=== PATIENT | male | born 1995 | race Caucasian/White ===

== ENCOUNTER 2024-07-24 20:23 | Inpatient (IN) | payer SELFPAY ==
[~2024-07-24] VITALS: Ht 175.3 cm; Wt 52.0 kg
[2024-07-24] MEDS: ACETAMINOPHEN 500 MG TABLET PO ONE (23:49)
[2024-07-25 00:01] LABS: COVID AG,FIA SOURCE NASAL SWAB
[2024-07-25] MEDS ORDERED: MELATONIN 5 MG TABLET PO ONE (00:15)
[2024-07-25] MEDS ORDERED: IBUPROFEN 600 MG TABLET PO PRN (00:15)
[2024-07-25] MEDS ORDERED: MAG HYDROX/ALUMINUM HYD/SIMETH ES 30 ML SUSPENSION UDCUP PO PRN (00:15)
[2024-07-25] MEDS ORDERED: HydrOXYzine PAMOATE 50 MG CAPSULE PO PRN (00:15)
[2024-07-25] MEDS ORDERED: CloNIDine HCL 0.1 MG TABLET PO PRN (00:15)
[2024-07-25 00:18] LABS: BASOPHILS % (AUTO) 0.3 % (0.0-2.0); EOSINOPHILS % (AUTO) 0.2 % (1.0-6.0); HEMATOCRIT 41.7 % (41-53); HEMOGLOBIN 14.1 g/dL (13.5-17.5); LYMPHOCYTES # (AUTO) 0.6 K/uL (1.0-4.8); LYMPHOCYTES % (AUTO) 7.4 % (22.0-44.0); MEAN CORPUSCULAR HEMOGLOBIN 30.6 pg (26.0-34.0); MEAN CORPUSCULAR HGB CONC 33.8 G/dL (31.0-37.0); MEAN CORPUSCULAR VOLUME 91 fL (80-100); MONOCYTES # (AUTO) 0.3 K/uL (0.1-1.0); MONOCYTES % (AUTO) 3.2 % (2.0-9.0); NEUTROPHILS # (AUTO) 7.4 K/uL (1.8-7.7); PLATELET COUNT (AUTO) 287 K/uL (150-450); RED BLOOD CELL COUNT(AUTO) 4.61 MIL/uL (4.50-5.90); RED CELL DISTRIBUTION WIDTH 13.1 % (11.5-14.5); WHITE BLOOD COUNT (AUTO) 8.4 K/uL (4.5-11.0)
[2024-07-25 00:25] LABS: NEUTROPHILS % (AUTO) 88.9 % (40.0-70.0)
[2024-07-25 00:27] LABS: SARS-COV2 (COVID) ANTIGEN,FIA Negative (Negative)
[2024-07-25 00:37] LABS: ANION GAP 9 mmol/L (8-16); CALCIUM, TOTAL 8.9 mg/dL (8.8-10.5); CARBON DIOXIDE 29 mmol/L (22-29); CHLORIDE 105 mmol/L (98-107); CREATININE 0.88 mg/dL (0.60-1.30); GLOMERULAR FILTR. RATE CALC > 60 mL/min (>60); GLUCOSE,RANDOM 99 mg/dL (70-110); POTASSIUM 4.3 mmol/L (3.5-5.1); SODIUM SERUM 143 mmol/L (136-145); UREA NITROGEN, BLOOD 9 mg/dL (7-18)
[2024-07-25 00:41] LABS: ALCOHOL, BLOOD (SERUM) < 3 mg/dL (0-10)
[2024-07-25 00:44] LABS: ALANINE AMINOTRANSFERASE 57 U/L (12-78); ALBUMIN 3.9 g/dL (3.4-5.0); ALKALINE PHOSPHATASE 77 U/L (46-116); ASPARTATE AMINOTRANSFERASE 31 U/L (15-37); BILIRUBIN,TOTAL 0.3 mg/dL (0.1-1.0); TOTAL PROTEIN, SERUM 6.9 g/dL (6.4-8.2)
[2024-07-25 00:45] LABS: TROPONIN I-HIGH SENSITIVITY 16 ng/L (<76)
[2024-07-25] MEDS: CloNIDine HCL 0.1 MG TABLET PO SCH (06:00)
[2024-07-25] MEDS: NALTREXONE HCL 50 MG TABLET PO SCH (08:41)
[2024-07-25 08:51] LABS: PH,URINE DRUG SCREEN 7.5 (5.0-8.0)
[2024-07-25 08:58] LABS: ALCOHOL, URINE DRUG SCREEN NEGATIVE (NEGATIVE); AMPHET/METH SCREEN,URINE POSITIVE (NEGATIVE); BARBITURATE SCREEN, URINE NEGATIVE (NEGATIVE); BENZODIAZEPINES SCREEN,URINE NEGATIVE (NEGATIVE); CANNABINOID SCREEN,URINE POSITIVE (NEGATIVE); COCAINE SCREEN,URINE NEGATIVE (NEGATIVE); METHADONE SCREEN, URINE NEGATIVE (NEGATIVE); OPIATE SCREEN,URINE NEGATIVE (NEGATIVE); PHENCYCLIDINE SCREEN,URINE NEGATIVE (NEGATIVE)
[2024-07-25] MEDS: LORazepam 2 MG TABLET PO PRN (09:29)
[2024-07-25] MEDS: OLANZapine 5 MG RAPDIS TABLET PO PRN (09:32)
[2024-07-25] MEDS: BUPRENORPHINE HCL/NALOXONE HCL 8-2 MG SUBLINGUAL TABLET SL ONE (11:51)
[2024-07-25 12:30] VITALS: RESP 20
[2024-07-25 13:30] VITALS: RESP 19
[2024-07-25 14:30] VITALS: RESP 18
[2024-07-25 15:30] VITALS: RESP 18
[2024-07-25 16:30] VITALS: RESP 19
[2024-07-25 20:30] VITALS: RESP 18
[2024-07-25] MEDS: OLANZapine 5 MG RAPDIS TABLET PO SCH (22:29)
[2024-07-26] VITALS (9 sets, daily range): BP systolic 93–138; BP diastolic 64–86; PULSE 85–100; RESP 16–18; TEMP 97.6–98; O2SAT 97–99
[2024-07-26] MEDS: ZOLPIDEM TARTRATE 10 MG TABLET PO PRN (01:08)
[2024-07-26] MEDS: DiphenhydrAMINE HCL 50 MG/ML VIAL IM ONE ×2 (01:46→10:42)
[2024-07-26] MEDS: HALOPERIDOL LACTATE 5 MG/ML VIAL IM ONE (01:50)
[2024-07-26] MEDS: LORazepam 2 MG/ML VIAL IM ONE ×2 (01:50→10:42)
[2024-07-26] MEDS ORDERED: DiphenhydrAMINE HCL 50 MG/ML VIAL IM ONE (10:15)
[2024-07-26] MEDS ORDERED: LORazepam 2 MG/ML VIAL IM ONE (10:15)
[2024-07-26] MEDS ORDERED: HALOPERIDOL LACTATE 5 MG/ML VIAL IM ONE (10:15)
[2024-07-26] MEDS: ChlorproMAZINE HCL 50 MG/2 ML AMP IM ONE (10:42)
[2024-07-26] MEDS: BACITRACIN 28 GM OINTMENT TP SCH (13:21)
[2024-07-26] MEDS: DIVALPROEX SODIUM 500 MG ER TABLET PO SCH (17:00)
[2024-07-26] MEDS: OLANZapine 10 MG RAPDIS TABLET PO SCH (21:00)
[2024-07-27 00:20] VITALS: BP 135/82; PULSE 82; RESP 18; TEMP 97.8
[2024-07-27] MEDS: THIAMINE 100 MG TABLET PO SCH (09:48)
[2024-07-27 13:46] VITALS: RESP 18
[2024-07-27] MEDS: NICOTINE 14 MG/24 HOUR PATCH TD SCH (18:41)
[2024-07-27 20:40] VITALS: BP 134/96; PULSE 98; RESP 18; TEMP 97.9; O2SAT 97
[2024-07-28 00:15] VITALS: BP 145/65; PULSE 92; RESP 18; TEMP 98; O2SAT 97
[2024-07-28 10:48] VITALS: BP 135/90; PULSE 71; RESP 17; TEMP 96.8; O2SAT 100
[2024-07-28 11:09] VITALS: BP 135/90; PULSE 71; RESP 17; TEMP 96.8; O2SAT 100
[2024-07-28 11:39] VITALS: BP 132/78; PULSE 77; RESP 18; O2SAT 97
[2024-07-28] MEDS ORDERED: OLAN10TA26 PO (15:33)
[2024-07-28] MEDS ORDERED: DIVA-153 PO (15:33)
[2024-07-28] MEDS ORDERED: NALT50TA33 PO (15:33)
[2024-07-28] MEDS ORDERED: CLON-501 PO (15:33)
[2024-07-28 17:31] VITALS: BP 130/65; PULSE 89; RESP 18; O2SAT 98
== END 2024-07-28 18:51 | disposition home or self-care (01) | DRG 885 ==
LOC: EMS 20:23 → 3EI 07-25 12:49
PROVIDERS: ADMIT Psychiatry & Neurology Psychiatry; ATTEND Psychiatry & Neurology Psychiatry
PROC: GZHZZZZ Group Psychotherapy (ICD-10-PCS; principal; 2024-07-26)
PROC: GZ58ZZZ Individual Psychotherapy, Cognitive-Behavioral (ICD-10-PCS; 2024-07-26)
DX: F25.9 Schizoaffective disorder, unspecified (principal); Z59.00 Homelessness unspecified; F15.90 Other stimulant use, unspecified, uncomplicated; Z20.822 Contact with and (suspected) exposure to COVID-19; F31.9 Bipolar disorder, unspecified; Z91.199 Patient's noncompliance with other medical treatment and regimen due to unspecified reason
CPT/HCPCS: 70450; 80048; 80076; 80164; 80307; 83735; 84100; 84484; 85025; 93005; 99285; G0480; J1200; J1630; J2060; J3230

== ENCOUNTER 2024-08-09 12:09 | Emergency (ER) | payer SELFPAY ==
[~2024-08-09] VITALS: Ht 170.2 cm; Wt 68.2 kg
[~2024-08-09 12:09] MED LIST: CLON-501 PO; DIVA-153 PO; NALT50TA33 PO; OLAN10TA26 PO
[2024-08-09 12:11] VITALS: BP 111/74; PULSE 94; RESP 18; TEMP 97.9; O2SAT 99
[2024-08-10] MEDS ORDERED: BUPR1TAB46 SL (10:29)
== END 2024-08-09 14:43 | disposition left against medical advice (07) ==
LOC: EMS 12:21
DX: M25.562 Pain in left knee (principal); Z53.21 Procedure and treatment not carried out due to patient leaving prior to being seen by health care provider
CPT/HCPCS: 73562-TC

== ENCOUNTER 2024-08-10 10:22 | Emergency (ER) | payer SELFPAY ==
[~2024-08-10] VITALS: Ht 175.3 cm; Wt 61.4 kg
[2024-08-10 10:27] VITALS: BP 115/69; PULSE 90; RESP 16; TEMP 97.8; O2SAT 100
[2024-08-10] MEDS ORDERED: BUPR1TAB46 SL (10:29)
[2024-08-10] MEDS: IBUPROFEN 600 MG TABLET PO ONE (11:23)
== END 2024-08-10 11:38 | disposition home or self-care (01) ==
LOC: EMS 10:22
DX: M25.562 Pain in left knee (principal); F12.90 Cannabis use, unspecified, uncomplicated; F17.210 Nicotine dependence, cigarettes, uncomplicated; F20.9 Schizophrenia, unspecified; Z90.49 Acquired absence of other specified parts of digestive tract
CPT/HCPCS: 99282; Z7502; Z7610